=== PATIENT | female | born 1950 | race Caucasian/White ===

== ENCOUNTER → 2019-06-24 | Day surgery (SDC) | payer MEDICARE, OTHER ==
[2019-06-23 13:13] LABS: BASOPHILS % 0.4 % (0.0-1.0); EOSINOPHILS # (AUTO) 0.1 (0.0-0.4); EOSINOPHILS % 1.7 % (0.0-6.0); HEMATOCRIT 36.4 % (34.2-44.1); HEMOGLOBIN 12.6 g/dL (12.0-16.0); LYMPHOCYTES # (AUTO) 0.9 (1.0-3.2); LYMPHOCYTES % 11.5 % (18.0-39.1); MEAN CORPUSCULAR HEMOGLOBIN 37.4 pg (28-32); MEAN CORPUSCULAR HGB CONC 34.6 g/dL (31-35); MONOCYTES # (AUTO) 0.7 (0.2-0.8); MONOCYTES % 8.9 % (4.4-11.3); NEUTROPHILS # (AUTO) 5.8 (2.1-6.9); NEUTROPHILS % 77.1 % (38.7-80.0); PLATELET COUNT 156 x10e3/uL (140-360); RED BLOOD COUNT 3.37 x10e6/uL (3.6-5.1); RED CELL DISTRIBUTION WIDTH 12.7 % (11.7-14.4)
[2019-06-23 13:39] LABS: INR 0.96; PROTHROMBIN TIME 13.3 seconds (11.9-14.5)
[2019-06-23 13:40] LABS: PARTIAL THROMBOPLASTIN TIME 34.7 seconds (23.8-35.5)
[2019-06-23 13:50] LABS: ALANINE AMINOTRANSFERASE 25 IU/L (0-55); ALBUMIN 3.6 g/dL (3.5-5.0); ALBUMIN/GLOBULIN RATIO 0.9 (0.8-2.0); ALKALINE PHOSPHATASE 145 IU/L (40-150); ANION GAP 13.6 mmol/L (8-16); BLOOD UREA NITROGEN 10 mg/dL (7-26); BUN/CREATININE RATIO 13 (6-25); CALCIUM 8.9 mg/dL (8.4-10.2); CARBON DIOXIDE 26 mmol/L (22-29); CHLORIDE 102 mmol/L (98-107); CREATININE, SERUM 0.78 mg/dL (0.57-1.11); EST GLOMERULAR FILTRATION RATE > 60 ML/MIN (60-); GLUCOSE 116 mg/dL (74-118); POTASSIUM 4.6 mmol/L (3.5-5.1); SODIUM 137 mmol/L (136-145)
[~2019-06-24] MED LIST: ALIVE ONCE DAI1 EACH PO; AMLODIPINE BESYL5 MG PO; ASPIRIN EC81 MG PO; ATENOLOL50 MG PO; BREO ELLIPTA 11 EACH INH; COQ-10100 MG PO; ESOMEPRAZOLE MA40 MG PEG; FENTANYL CITRATE/PF 100MCG/2 ML INJ ONE; GABAPENTIN300 MG PO; GLYCOPYRROLATE INJ 0.2 MG/ML VIAL ONE; HYDROMORPHO2 MG/1 M7 PO; IRON PO; LIDOCAINE HCL 2% LOCAL INJ 5 ML SDV VIAL INJ ONE; MIDAZOLAM HCL 2 MG/2 ML VIAL ONE; POTASSIUM CITR10 MEQ PO; PROPOFOL IV EMULSION 10 MG/ML 50 ML VIAL ONE; VITAMIN C500 MG PO; VITAMIN D32000 UNI2 PO
--- OUTSIDE RECORDS SUMMARY | 2019-06-24 09:59 | XMS REPORT ---
Author Author [facility] Address Unknown Phone Unavailable Care Team Providers Care Rfid Developer Name Role Phone BRONWYN GARVIN Unavailable Unavailable PAOLA BUITRAGO Unavailable Unavailable Payers Payer Name Policy Type Policy Number Effective Date Expiration Date Problems This patient has no known problems. Allergies, Adverse Reactions, Alerts Allergy Name Allergy Type Status Severity Reaction(s) Onset Date Inactive Date Treating Clinician Comments No Known Allergies DA Active U 2015-05-17 00:00:00 Medications This patient has no known medications. Results Test Description Test Time Test Comments Text Results Atomic Results Result Comments CT ABDOMEN/PELVIS W 2019-05-22 14:14:00 [place] [address] Patient Name: JAYDEN MENDEZ MR #: [id number] : 1950 Age/Sex: 68/F Req #: [id number] Adm Physician: Ordered by: BRONWYN GARVIN MD Report #: [id number] Location: CT Room/Bed: Procedure: [id number] CT/CT ABDOMEN/PELVIS W Exam Date: Exam Time: REPORT STATUS: Signed CT of the abdomen and pelvis, with contrast, 05/22/2019. History: Anemia, cancer screening. Comparison: None available. Technique: Multidetector CT scanning of the abdomen and pelvis was performed from the level of the lung bases to the inferior pubic rami after intravenous and oral administration of contrast. Coronal and sagittal multiplanar reformations were obtained. RADIATION DOSE: Total DLP: 301 mGy*cm Dose modulation, iterative reconstruction, and/or weight based adjustment of the mA/kV was utilized to reduce the radiation dose to as low as reasonably achievable. Discussion: LUNG BASES: There is left basilar consolidation with adjacent pleural thickening. Bilateral breast implants are noted. ABDOMEN: There is nodularity of the liver surface contour with atrophy of the right hepatic lobe and hypertrophy of the left lobe. There is no focal hepatic lesion. Multiple subcentimeter cortical hypodensities are present within both kidneys which are too small to characterize. The gallbladder is absent. The biliary tree, spleen, pancreas, and adrenal glands are normal. The hepatic vein, portal vein, and splenic vein are patent. The portal vein is dilated measuring 15 mm in diameter. The abdominal aorta is mildly calcified but within normal limits for size. The stomach, small bowel, and large bowel are unremarkable. There is no evidence of dilatation, focal wall thickening, or obstructing mass. Appendectomy clips are noted. There is no evidence of adenopathy or free fluid. PELVIS: The bladder is unremarkable. The uterus and adnexa are absent. There is no evidence of free fluid or adenopathy. BONES AND SOFT TISSUES: Degenerative changes are present throughout the lumbar spine without evidence of lytic or sclerotic lesion. IMPRESSION: 1. Cirrhotic liver with findings of portal hypertension. 2. Bilateral subcentimeter renal hypodensities which are too small to characterize. 3. Status post cholecystectomy, hysterectomy, and appendectomy. 4. Left lung base consolidation may represent atelectasis but pneumonia cannot be excluded. Correlate clinically. 5. No bowel abnormality. This study cannot evaluate for small intraluminal polyps or masses. Signed by: Aaron Herrera on 05/22/2019 2:36 PM Dictated By: AARON HERRERA MD [id number] Transcribed By: FERNANDO on 05/22/19 1436 COPY TO: BRONWYN GARVIN MD - XR CHEST 2 V 2019-01-27 13:57:00 FAX: Moiz Hernandez MD [phone] [place]: St: REG Name: JAYDEN MENDEZ [facility] : 1950 Age/S: 68/F [address] Unit #: [id number] Loc: [place] [address] Phys: Moiz Guzman MD Acct: [id number] Dis Date: Status: REG CLI PHONE #: [phone] Exam Date: 01/27/2019 1335 FAX #: [phone] Reason: HTN EXAMS: CPT CODE: [id number] XR CHEST 2 V 77586 REASON FOR EXAM: HTN Exam Order Date: 01/27/2019 12:49 PM Ordering M.D.: Moiz Guzman MD PROCEDURE: - XR CHEST 2 V COMPARISON: 2 view chest x-ray January 03, 2017 FINDINGS: There is parenchymal scarring in the left midlung that is unchanged from the previous exam. There are linear opacities in the right midlung which are new from the previous study and may represent chronic subsegmental atelectasis versus parenchymal scarring. Bilateral breast implants are unchanged from the prior exam. Upper lungs are clear. No pleural effusion or pneumothorax. Cardiomediastinal silhouette is normal in size. No acute musculoskeletal abnormality. Visualized upper abdomen is radiographically unremarkable. IMPRESSION: Linear opacities in the right midlung are new from the prior exam and may represent subsegmental atelectasis versus parenchymal scarring. Scarring in the left lung is unchanged. Remainder of the lungs are clear. at 1357 Reported and signed by: Darwin Hays MD CC: Moiz Guzman MD Technologist: MICHELLE FREDERICK, RT(R); Amarilis Judge RT(R) Trnscrd Date/Time/By: 01/27/2019 (1357) : By: [email or web address] Orig Print D/T: S: (1400) PAGE 1 Signed Report CYTOLOGY 2017-06-07 15:48:00 Medical Cytology Report Case: [id number] Authorizing Provider: Yumiko Rehman MD Collected: 06/05/2017 1104 Ordering Location: [facility] Diagnostic Imaging Received: 06/05/2017 1400 Pathologist: Christina Watkins MD Specimen: Lung, Right Upper Lobe POSITIVE FOR MALIGNANCY RIGHT UPPER LOBE LUNG MASS, FNA WITH CELL BLOCK BY RADIOLOGIST (MO):ADENOCARCINOMA, CONSISTENT WITH LUNG ORIGIN (SEE COMMENT). Signing Pathologist Direct Phone Line: [phone] signed by Christina Watkins MD on 06/07/2017 at 3:48 PMImmunostains performed on cell block sections show that the tumor cells are positive for TTF-1 and Napsin A, while negative for p40, supporting the above diagnosis. PHOTO RETOUCHER REVIEW:Danita Foss above pathologist(s) have reviewed pertinent material and concur with the diagnosis.31728, 52596, 91203, 56924, 71714 x 2Lung mass; hx left lung cancerRUL lung mass (2.9 cm)Collected: 06/05/2017 1104Received: 06/05/2017 00653 passes; 2 smears; cell blockPASSES 1- 3: DIAGNOSTIC MATERIAL PRESENT. REQUEST ADDITIONAL FOR MOLECULAR STUDIES. (DG) 06/05/2017All cytologic preparations and histologic sections have been microscopically examined. The pertinent microscopic examination findings have been incorporated into the diagnosis rendered above.SatisfactoryThe following special studies were performed on this case and the interpretation is incorporated in the diagnostic report above: TTF-1, Napsin A, and p40.Control material (internal or externally reviewed) examined and shown to be satisfactory for patient interpretation.The immunohistochemistry test was developed and its performance characteristics determined by [facility] Pathology [facility]. It has not been cleared or approved by the U.S. Food and Drug Administration. The FDA has determined that such clearance or approval is not necessary. The test is used for clinical purposes. It should not be regarded as investigational or for research. This laboratory is certified under the Clinical Laboratory Improvement Amendments of 1988 (CLIA-88) as qualified to perform high complexity clinical laboratory testing.[facility], Department of Pathology, [address] [place] [address], Bd. [facility] Department of Pathology, [address] [place] [address], Fb. [facility], Department of Pathology, [address] [place] [address], CT, BIOPSY, LUNG 2017-06-05 18:08:00 Reason for Exam:->ADENOCARCINOMA OF UPPER LOBE OF LEFT LUNG, C34.12 FINAL REPORT Exam: CT-guided lung biopsy Clinical History: Lung mass Consent: Benefits and risks were explained to the patient who gave consent to the procedure. Sedation: The procedure was performed with conscious sedation. Continuous cardiorespiratory monitoring was performed by a registered nurse throughout the procedure. The total sedation time is 30 minutes. Fluoro Time: 0.1 Minutes Medication: Versed 1 mg IV, fentanyl 50 mcg IV Procedure: The right posterior chest was prepped and draped in usual sterile fashion. 1% lidocaine was used as local anesthetic. Under CT guidance, a 19-gauge guiding needle was advanced to the posterior border of a 2.7 cm mass in the right lower lobe. In coaxial fashion, 23-gauge needle was used to perform FNA. 5 passes were made. The specimens were given to pathology on site and determined to be adequate. Hemostasis was achieved. The patient tolerated the procedure well without any adverse reactions. She left the department in stable condition. Complication: None immediate Impression: 1. CT-guided lung biopsy as described. DOSE REDUCTION: The exams was performed according to the departmental dose-optimization program which includes automated exposure control, adjustment of the mA and/or kV according to patient size and/or use of iterative reconstruction technique. Signed: Yumiko Rehman MDReport Verified Date/Time: 06/05/2017 18:08:19 Reading Location: [facility] Radiology Reading Room , CHEST, 1 VIEW, NON DEPT 2017-06-05 14:01:00 Reason for exam:->s/p right lung biopsy. Pt in Radiology room #3.Should this be performed at the bedside?->Yes FINAL REPORT Chest, 1 view, 06/05/2017 12:18 PM. History: Post right lung biopsy. Comparison: 07/24/2016. Discussion: The cardiomediastinal silhouette and pulmonary vasculature are within normal limits for a portable exam. Right perihilar mass is present. There is no evidence of a pneumothorax. Linear opacities are again seen in the mid left lung. Bilateral breast implants are noted. The soft tissues and osseous structures are intact. IMPRESSION: No evidence of complication post right lung biopsy. Signed: Aaron Herrera MDReport Verified Date/Time: 06/05/2017 14:01:38 Reading Location: [facility] Diagnostic Imaging Reading Room - [facility] 1.310.12 HROMBIN TIME/INR 2017-06-05 08:57:00 PROTIME (BEAKER) (test rbzm=885) 13.6 seconds 11.8-14.4 INR (BEAKER) (test gyil=338) 1.0 1.2-1.5 RECOMMENDED COUMADIN/WARFARIN INR THERAPY RANGESSTANDARD DOSE: 2.0 - 3.0 Inclu jen: PROPHYLAXIS for venous thrombosis, systemic embolization; TREATMENT for tan ous thrombosis and/or pulmonary embolus.HIGH RISK: Target INR is 2.5-3.5 for pat ients with mechanical heart valves.[id number] 08:57:00* Test Item Value Reference Range Comments PARTIAL THROMBOPLASTIN TIME (BEAKER) (test mbdr=298) 35.2 seconds 23.2-36.1 PLATELET [id number] 08:47:00* Test Item Value Reference Range Comments PLATELET COUNT (BEAKER) (test romc=490) 255 K/CU MM 150-430 TROPONIN [id number] 20:47:00* Test Item Value Reference Range Comments TROPONIN I (BEAKER) (test opdd=134) < ng/mL 0.00-0.15 Troponin I (TnI) levels must be interpreted in the context of the presenting sym ptoms and the clinical findings. Elevated TnI levels indicate myocardial damage, but are not specific for ischemic heart disease. Elevated TnI levels are seen in patients with other cardiac conditions (including myocarditis and congestive h eart failure), and slight TnI elevations occur in patients with other conditions , including sepsis, renal failure, acidosis, acute neurological disease, and per sistent tachyarrhythmia.B-TYPE NATRIURETIC FACTOR (BNP)2016-07-24 20:46:00* Test Item Value Reference Range Comments B-TYPE NATRIURETIC PEPTIDE (BEAKER) (test nclc=008) 37 pg/mL 0-100 COMPREHENSIVE METABOLIC [id number] 20:40:00* Test Item Value Reference Range Comments TOTAL PROTEIN (BEAKER) (test swgl=760) 7.9 gm/dL 6.0-8.5 ALBUMIN (BEAKER) (test iycj=0324) 3.9 g/dL 3.5-5.0 ALKALINE PHOSPHATASE (BEAKER) (test jmxj=064) 193 U/L 30-115 BILIRUBIN TOTAL (BEAKER) (test ygwe=299) 0.7 mg/dL 0.1-1.3 SODIUM (BEAKER) (test ruiz=692) 132 meq/L 135-148 POTASSIUM (BEAKER) (test bdyr=960) 4.4 meq/L 3.5-5.5 CHLORIDE (BEAKER) (test swiz=967) 97 meq/L 98-106 CO2 (BEAKER) (test hcfc=319) 24 meq/L 20-31 BLOOD UREA NITROGEN (BEAKER) (test kyna=855) 10 mg/dL 10-26 CREATININE (BEAKER) (test lxif=954) 1.25 mg/dL 0.50-1.20 GLUCOSE RANDOM (BEAKER) (test gvio=717) 114 mg/dL 70-110 CALCIUM (BEAKER) (test kkiu=728) 9.1 mg/dL 8.5-10.5 AST (SGOT) (BEAKER) (test vnis=784) 35 U/L 5-40 ALT (SGPT) (BEAKER) (test rgui=052) 14 U/L 6-50 EGFR (BEAKER) (test aioh=3465) 43 mL/min/1.73 sq m ESTIMATED GFR IS NOT ACCURATE CREATININE CLEARANCE IN PREDICTING GLOMERULAR FILTRATION RATE. ESTIMATED GFR IS NOT APPLICABLE FOR DIALYSIS PATIENTS. CBC W/PLT COUNT & AUTO [id number] 20:10:00* Test Item Value Reference Range Comments WHITE BLOOD CELL COUNT (BEAKER) (test ecsm=026) 7.7 K/ L 4.0-10.0 RED BLOOD CELL COUNT (BEAKER) (test ahvq=070) 3.55 M/ L 4.00-5.00 HEMOGLOBIN (BEAKER) (test yozg=583) 11.7 GM/DL 12.0-15.0 HEMATOCRIT (BEAKER) (test dhsu=874) 35.0 % 36.0-45.0 MEAN CORPUSCULAR VOLUME (BEAKER) (test uods=498) 98.7 fL 82.0-99.0 MEAN CORPUSCULAR HEMOGLOBIN (BEAKER) (test ibwy=995) 33.1 pg 27.0-33.0 MEAN CORPUSCULAR HEMOGLOBIN CONC (BEAKER) (test tnna=295) 33.5 GM/DL 32.0-36.0 RED CELL DISTRIBUTION WIDTH (BEAKER) (test rwbh=493) 16.8 % 12.0-15.0 PLATELET COUNT (BEAKER) (test xdzn=790) 225 K/CU MM 150-430 MEAN PLATELET VOLUME (BEAKER) (test evjl=120) 8.4 fL 6.5-10.5 NUCLEATED RED BLOOD CELLS (BEAKER) (test chwb=534) 0 /100 WBC 0-0 NEUTROPHILS RELATIVE PERCENT (BEAKER) (test wjip=120) 60 % LYMPHOCYTES RELATIVE PERCENT (BEAKER) (test defw=953) 26 % MONOCYTES RELATIVE PERCENT (BEAKER) (test xoog=267) 12 % EOSINOPHILS RELATIVE PERCENT (BEAKER) (test nafq=084) 2 % BASOPHILS RELATIVE PERCENT (BEAKER) (test kcgp=056) 0 % NEUTROPHILS ABSOLUTE COUNT (BEAKER) (test scez=213) 4.60 K/ L 1.80-8.00 LYMPHOCYTES ABSOLUTE COUNT (BEAKER) (test nkxt=720) 2.00 K/ L 1.48-4.50 MONOCYTES ABSOLUTE COUNT (BEAKER) (test eilj=379) 0.90 K/ L 0.00-1.30 EOSINOPHILS ABSOLUTE COUNT (BEAKER) (test anlt=192) 0.20 K/ L 0.00-0.50 BASOPHILS ABSOLUTE COUNT (BEAKER) (test nakp=796) 0.00 K/ L 0.00-0.20
[2019-06-24 11:44] VITALS: BP 129/71
== END | disposition home or self-care (01) ==
LOC: OR 08:47
PROVIDERS: ATTEND Internal Medicine Gastroenterology
DX: Z12.11 Encounter for screening for malignant neoplasm of colon (principal); D12.2 Benign neoplasm of ascending colon; D12.3 Benign neoplasm of transverse colon; K29.70 Gastritis, unspecified, without bleeding; K29.80 Duodenitis without bleeding; K21.9 Gastro-esophageal reflux disease without esophagitis; K64.8 Other hemorrhoids; K44.9 Diaphragmatic hernia without obstruction or gangrene; R19.5 Other fecal abnormalities; K74.60 Unspecified cirrhosis of liver; D64.9 Anemia, unspecified; I10 Essential (primary) hypertension; Z79.82 Long term (current) use of aspirin; Z85.118 Personal history of other malignant neoplasm of bronchus and lung; Z92.3 Personal history of irradiation; Z92.21 Personal history of antineoplastic chemotherapy
CPT/HCPCS: 36415; 43239; 45385; 80053; 85025; 85610; 85730; 88305; 88312; 93005; J2001; J2250; J2704; J3010; 45378; 45384

== ENCOUNTER 2021-05-26 05:14 | Inpatient (IN) | payer MEDICARE, OTHER ==
[~2021-05-26] VITALS: Ht 162.6 cm; Wt 59.0 kg
[2021-05-26] MEDS: SODIUM CHLORIDE 0.9% 1000ML 1,000 ML IV SCH ×2 (02:00→10:03)
[~2021-05-26 05:14] MED LIST changes: -FENTANYL CITRATE/PF 100MCG/2 ML INJ ONE; -GLYCOPYRROLATE INJ 0.2 MG/ML VIAL ONE; -LIDOCAINE HCL 2% LOCAL INJ 5 ML SDV VIAL INJ ONE; -MIDAZOLAM HCL 2 MG/2 ML VIAL ONE; -PROPOFOL IV EMULSION 10 MG/ML 50 ML VIAL ONE
[2021-05-26] MEDS ORDERED: METHYLPREDNISOLONE SOD SUCC 125 MG/2ML VIAL IV ONE (05:30)
[2021-05-26] MEDS ORDERED: ALBUTEROL/IPRATROPIUM 3 ML NEB NEB ONE (05:30)
[2021-05-26] MEDS ORDERED: ACETAMINOPHEN 325 MG TAB PO ONE (05:45)
[2021-05-26 05:53] LABS: BASOPHILS % 0.2 % (0.0-1.0); EOSINOPHILS # (AUTO) 0.1 (0.0-0.4); EOSINOPHILS % 0.9 % (0.0-6.0); HEMATOCRIT 34.7 % (34.2-44.1); HEMOGLOBIN 10.9 g/dL (12.0-16.0); LYMPHOCYTES # (AUTO) 1.7 (1.0-3.2); LYMPHOCYTES % 14.1 % (18.0-39.1); MEAN CORPUSCULAR HEMOGLOBIN 35.3 pg (28-32); MEAN CORPUSCULAR HGB CONC 31.4 g/dL (31-35); MEAN CORPUSCULAR VOLUME 112.3 fL (81-99); MONOCYTES # (AUTO) 1.1 (0.2-0.8); MONOCYTES % 9.2 % (4.4-11.3); NEUTROPHILS # (AUTO) 9.2 (2.1-6.9); NEUTROPHILS % 74.9 % (38.7-80.0); PLATELET COUNT 154 x10e3/uL (140-360); RED BLOOD COUNT 3.09 x10e6/uL (3.6-5.1); RED CELL DISTRIBUTION WIDTH 14.7 % (11.7-14.4)
[2021-05-26] MEDS ORDERED: ACETAMINOPHEN 325 MG TAB ONE (05:56)
[2021-05-26 05:57] LABS: ABG PCO2 41 mmHg (35-45); ABG PH 7.38 (7.35-7.45)
[2021-05-26 05:58] LABS: ABG HCO3 24 mmol/L (22-26); ABG PO2 211 mmHg (80-105); ABG TCO2 25
[2021-05-26 06:04] LABS: ALBUMIN/GLOBULIN RATIO 0.7 (0.8-2.0); CREATININE, SERUM 1.05 mg/dL (0.57-1.11)
[2021-05-26] MEDS ORDERED: IOPAMIDOL 370 MG/ML 200 ML INFUS..BTL INJ ONE (06:30)
[2021-05-26] MEDS ORDERED: LACTATED RINGER'S 1,000 ML INJ ONE (06:30)
[2021-05-26] MEDS ORDERED: CEFEPIME 1 GM in SODIUM CHLORIDE 0.9% 50ML 50 ML IV ONE (06:30)
[2021-05-26] MEDS ORDERED: SODIUM CHLORIDE 0.9% 50ML 0 ML ONE (06:30)
[2021-05-26] MEDS ORDERED: ONDANSETRON HCL INJ 2MG/ML 2ML 2 MG/ML VIAL IV PRN (07:15)
[2021-05-26] MEDS ORDERED: DOCUSATE SODIUM 100 MG CAP PO PRN (07:30)
[2021-05-26] MEDS ORDERED: GUAIFENESIN/DEXTROMETHORPHAN LIQD 5 ML UDC NG PRN (07:30)
[2021-05-26] MEDS ORDERED: BENZONATATE 100 MG CAP PO PRN (07:30)
[2021-05-26] MEDS: PANTOPRAZOLE SODIUM 40 MG SUSPDR.PKT PEG SCH (08:30)
[2021-05-26 08:34] VITALS: BP 155/86
[2021-05-26 08:36] LABS: BAND NEUTROPHILS % (MANUAL) 1 %; EOSINOPHILS % (MANUAL) 3 % (0-7); LYMPHOCYTES % (MANUAL) 21 % (19-48); MONOCYTES % (MANUAL) 3 % (3.4-9.0); NEUTROPHILS % (MANUAL) 69 % (40-74); PLATELET ESTIMATE ADEQUATE; PLATELET MORPHOLOGY COMMENT NORMAL; RBC MORPHOLOGY COMMENT NORMAL
[2021-05-26 09:00] VITALS: BP 155/86
[2021-05-26] MEDS: ASPIRIN 81 MG ENTERIC COATED PO SCH (10:03)
[2021-05-26] MEDS: ATENOLOL 50 MG TAB PO SCH (10:03)
[2021-05-26] MEDS: GABAPENTIN 300 MG CAP PO SCH ×4 (10:03→21:30)
[2021-05-26] MEDS: ASCORBIC ACID 500 MG TAB PO SCH (10:04)
[2021-05-26] MEDS: CHOLECALCIFEROL 1,000 UNIT TAB PO SCH (10:04)
[2021-05-26 11:11] VITALS: BP 105/73
[2021-05-26 16:08] VITALS: BP 108/70
[2021-05-26] MEDS: ENOXAPARIN SOD INJ 40 MG/0.4 ML SYR SC SCH (17:27)
[2021-05-26 19:10] VITALS: BP 129/81
[2021-05-26] MEDS ORDERED: MONTELUKAST SODIUM 10 MG TAB PO SCH (21:00)
[2021-05-26] MEDS: METHYLPREDNISOLONE SOD SUCC 40 MG/ML VIAL 1ML IV SCH (21:33)
[2021-05-26 22:15] VITALS: BP 129/81
[2021-05-27] VITALS (7 sets, daily range): BP systolic 122–150; BP diastolic 66–78
[2021-05-27 06:18] LABS: HEMATOCRIT 30.4 % (34.2-44.1); HEMOGLOBIN 9.6 g/dL (12.0-16.0); LYMPHOCYTES # (AUTO) 0.6 (1.0-3.2); LYMPHOCYTES % 8.6 % (18.0-39.1); MEAN CORPUSCULAR HGB CONC 31.6 g/dL (31-35); MEAN CORPUSCULAR VOLUME 110.9 fL (81-99); MONOCYTES # (AUTO) 0.4 (0.2-0.8); MONOCYTES % 5.5 % (4.4-11.3); NEUTROPHILS # (AUTO) 5.8 (2.1-6.9); NEUTROPHILS % 85.5 % (38.7-80.0); PLATELET COUNT 112 x10e3/uL (140-360); RED BLOOD COUNT 2.74 x10e6/uL (3.6-5.1); RED CELL DISTRIBUTION WIDTH 14.6 % (11.7-14.4)
[2021-05-27 06:43] LABS: ANION GAP 15.3 mmol/L (8-16); CALCIUM 8.9 mg/dL (8.4-10.2); CREATININE, SERUM 0.89 mg/dL (0.57-1.11); POTASSIUM 4.3 mmol/L (3.5-5.1)
[2021-05-27] MEDS: SODIUM CHLORIDE 0.9% 1000ML 1,000 ML IV SCH ×2 (06:52→12:41)
[2021-05-27] MEDS: CHOLECALCIFEROL 1,000 UNIT TAB PO SCH (09:00)
[2021-05-27] MEDS: ATENOLOL 50 MG TAB PO SCH (09:00)
[2021-05-27] MEDS ORDERED: CEFEPIME 1 GM in SODIUM CHLORIDE 0.9% 50ML 50 ML IV SCH (09:00)
[2021-05-27] MEDS: PANTOPRAZOLE SODIUM 40 MG SUSPDR.PKT PEG SCH (09:00)
[2021-05-27] MEDS: ASCORBIC ACID 500 MG TAB PO SCH (09:00)
[2021-05-27] MEDS: METHYLPREDNISOLONE SOD SUCC 40 MG/ML VIAL 1ML IV SCH (09:00)
[2021-05-27] MEDS: ASPIRIN 81 MG ENTERIC COATED PO SCH (09:00)
[2021-05-27] MEDS: GABAPENTIN 300 MG CAP PO SCH ×3 (09:00→16:26)
[2021-05-27] MEDS: ACETAMINOPHEN 325 MG TAB PO PRN ×2 (09:00→15:33)
[2021-05-27] MEDS ORDERED: ALPRAZOLAM 0.25 MG TAB PO PRN (09:30)
[2021-05-27] MEDS ORDERED: Benzonatate PO (09:32)
[2021-05-27] MEDS ORDERED: SINGULAIR10 MG PO (09:32)
[2021-05-27] MEDS ORDERED: PREDNISONE20 MG PO (09:32)
[2021-05-27] MEDS ORDERED: CEFUROXIME250 MG PO (09:32)
[2021-05-27] MEDS ORDERED: Guaifenesin/Dextromethorphan NG (09:32)
[2021-05-27] MEDS ORDERED: ONDANSETRON HCL 4 MG ORAL DISINTEGRATING TAB PO PRN (10:15)
[2021-05-27] MEDS ORDERED: HYDROMORPHONE 1MG/1ML INJ IV ONE (10:15)
[2021-05-27 11:36] LABS: PLATELET ESTIMATE SLIGHTLY DECREASED; PLATELET MORPHOLOGY COMMENT NORMAL; RBC MORPHOLOGY COMMENT ABNORMAL
[2021-05-27] MEDS: ENOXAPARIN SOD INJ 40 MG/0.4 ML SYR SC SCH (15:32)
== END 2021-05-27 17:56 | disposition home or self-care (01) | DRG 872 ==
LOC: ER 05:23 → ERHOLD 07:14 → OBSVTOIN 07:27 → MED/SURG3 08:22
PROVIDERS: ADMIT Internal Medicine; ATTEND Internal Medicine
DX: A41.9 Sepsis, unspecified organism (principal); J44.1 Chronic obstructive pulmonary disease with (acute) exacerbation; N17.9 Acute kidney failure, unspecified; C34.92 Malignant neoplasm of unspecified part of left bronchus or lung; C34.91 Malignant neoplasm of unspecified part of right bronchus or lung; J96.11 Chronic respiratory failure with hypoxia; I10 Essential (primary) hypertension; K21.9 Gastro-esophageal reflux disease without esophagitis; F41.9 Anxiety disorder, unspecified; G89.3 Neoplasm related pain (acute) (chronic); Z90.49 Acquired absence of other specified parts of digestive tract; Z87.891 Personal history of nicotine dependence; Z99.81 Dependence on supplemental oxygen; Z20.822 Contact with and (suspected) exposure to COVID-19
CPT/HCPCS: 36415; 36600; 71045; 71260; 80048; 80053; 82805; 83605; 84484; 85025; 87040; 93005; 94640; 94799; 97139; 99284; J0456; J0692; J1170; J1650; J2920; J2930; J7030; J7050; J7121; Q9967; U0002

== ENCOUNTER 2021-06-10 12:35 | Emergency (ER) | payer MEDICARE, OTHER ==
[~2021-06-10] VITALS: Ht 162.6 cm; Wt 59.0 kg
[~2021-06-10 12:35] MED LIST changes: +Benzonatate PO; +CEFUROXIME250 MG PO; +Guaifenesin/Dextromethorphan NG; +PREDNISONE20 MG PO; +SINGULAIR10 MG PO
[2021-06-10] MEDS ORDERED: METHYLPREDNISOLONE SOD SUCC 125 MG/2ML VIAL IV STA (13:05)
[2021-06-10 13:26] LABS: BASOPHILS % 0.2 % (0.0-1.0); EOSINOPHILS # (AUTO) 0.1 (0.0-0.4); EOSINOPHILS % 0.9 % (0.0-6.0); HEMATOCRIT 33.8 % (34.2-44.1); HEMOGLOBIN 10.5 g/dL (12.0-16.0); LYMPHOCYTES # (AUTO) 0.7 (1.0-3.2); LYMPHOCYTES % 6.3 % (18.0-39.1); MEAN CORPUSCULAR HGB CONC 31.1 g/dL (31-35); MEAN CORPUSCULAR VOLUME 112.7 fL (81-99); MONOCYTES % 9.1 % (4.4-11.3); NEUTROPHILS # (AUTO) 9.2 (2.1-6.9); NEUTROPHILS % 83.1 % (38.7-80.0); PLATELET COUNT 211 x10e3/uL (140-360); RED CELL DISTRIBUTION WIDTH 14.6 % (11.7-14.4)
[2021-06-10 13:32] LABS: INR 0.99; PROTHROMBIN TIME 13.8 seconds (11.9-14.5)
[2021-06-10 13:33] LABS: PARTIAL THROMBOPLASTIN TIME 33.1 seconds (23.8-35.5)
[2021-06-10 13:41] LABS: ALBUMIN 3.1 g/dL (3.5-5.0); ALBUMIN/GLOBULIN RATIO 0.8 (0.8-2.0); ANION GAP 14.4 mmol/L (8-16); CALCIUM 8.9 mg/dL (8.4-10.2); CREATININE, SERUM 0.93 mg/dL (0.57-1.11); POTASSIUM 4.4 mmol/L (3.5-5.1)
[2021-06-10 13:47] LABS: CREATINE KINASE MB 1.9 ng/mL (0-5.0)
[2021-06-10] MEDS ORDERED: ALBUTEROL/IPRATROPIUM 3 ML NEB NEB ONE (14:00)
== END 2021-06-10 16:19 | disposition home or self-care (01) ==
LOC: ER 13:05
DX: R04.2 Hemoptysis (principal); C34.92 Malignant neoplasm of unspecified part of left bronchus or lung; C34.91 Malignant neoplasm of unspecified part of right bronchus or lung; J40 Bronchitis, not specified as acute or chronic; I10 Essential (primary) hypertension; Z20.822 Contact with and (suspected) exposure to COVID-19
CPT/HCPCS: 36415; 71045; 80053; 82550; 82553; 83880; 84484; 85025; 85610; 85730; 93005; 94640; 94799; 99284; J2930; U0002

== ENCOUNTER 2021-09-05 06:18 | Inpatient (IN) | payer MEDICARE, OTHER ==
[~2021-09-05] VITALS: Ht 162.6 cm; Wt 59.0 kg
[2021-09-05 06:44] LABS: BASOPHILS % 0.5 % (0.0-1.0); EOSINOPHILS # (AUTO) 0.1 (0.0-0.4); EOSINOPHILS % 2.1 % (0.0-6.0); HEMATOCRIT 28.4 % (34.2-44.1); HEMOGLOBIN 8.7 g/dL (12.0-16.0); LYMPHOCYTES % 16.7 % (18.0-39.1); MEAN CORPUSCULAR HEMOGLOBIN 30.5 pg (28-32); MEAN CORPUSCULAR HGB CONC 30.6 g/dL (31-35); MEAN CORPUSCULAR VOLUME 99.6 fL (81-99); MONOCYTES # (AUTO) 0.7 (0.2-0.8); MONOCYTES % 11.2 % (4.4-11.3); NEUTROPHILS # (AUTO) 4.2 (2.1-6.9); NEUTROPHILS % 69.2 % (38.7-80.0); PLATELET COUNT 260 x10e3/uL (140-360); RED BLOOD COUNT 2.85 x10e6/uL (3.6-5.1); RED CELL DISTRIBUTION WIDTH 14.5 % (11.7-14.4)
[2021-09-05] MEDS ORDERED: ALBUTEROL/IPRATROPIUM 3 ML NEB NEB ONE (06:45)
[2021-09-05] MEDS ORDERED: DEXAMETHASONE SOD PHOS 10 MG/1 ML VIAL IV ONE (06:45)
[2021-09-05 07:05] LABS: ALBUMIN/GLOBULIN RATIO 0.7 (0.8-2.0); ANION GAP 17.4 mmol/L (8-16); CALCIUM 8.5 mg/dL (8.4-10.2); CREATININE, SERUM 0.84 mg/dL (0.57-1.11); POTASSIUM 3.4 mmol/L (3.5-5.1)
[2021-09-05] MEDS ORDERED: IOPAMIDOL 370 MG/ML 100 ML INFUS..BTL INJ ONE (07:42)
[2021-09-05] MEDS ORDERED: ZOLPIDEM TARTRATE 5 MG TAB PO PRN (10:15)
[2021-09-05] MEDS ORDERED: ONDANSETRON HCL INJ 2MG/ML 2ML 2 MG/ML VIAL IV PRN (10:15)
[2021-09-05] MEDS: ATENOLOL 50 MG TAB PO SCH (10:45)
[2021-09-05] MEDS: AMLODIPINE BESYLATE 5 MG TAB PO SCH (10:45)
[2021-09-05 11:58] VITALS: BP 138/68
[2021-09-05 12:27] VITALS: BP 138/68
[2021-09-05 13:31] LABS: INR 0.97; PROTHROMBIN TIME 13.8 seconds (11.9-14.5)
[2021-09-05 14:03] VITALS: BP 138/68
[2021-09-05 15:48] LABS: BODY FLUID TYPE PLEURAL
[2021-09-05 15:49] LABS: BODY FLUID APPEARANCE CLOUDY; BODY FLUID COLOR YELLOW
[2021-09-05 17:31] VITALS: BP 115/65
[2021-09-05 18:06] LABS: LYMPHOCYTES,BODY FLUID 32 %; MONO/MACROPHG,BODY FLUID 19 %; NEUTROPHILS,BODY FLUID 36 %; OTHER CELLS,BODY FLUID 13 %
[2021-09-05 18:19] LABS: RBC,BODY FLUID 204 cells/uL; WBC,BODY FLUID 90 cells/uL
[2021-09-05] MEDS: BENZONATATE 100 MG CAP PO SCH (18:29)
[2021-09-05] MEDS ORDERED: ACETAMINOPHEN 325 MG TAB PO PRN (18:30)
[2021-09-05] MEDS: ALBUTEROL/IPRATROPIUM 3 ML NEB NEB PRN (18:43)
[2021-09-05 20:00] VITALS: BP 136/71
[2021-09-05] MEDS: TRAMADOL HCL 50 MG TAB PO PRN (23:04)
[2021-09-06] VITALS (8 sets, daily range): BP systolic 107–138; BP diastolic 52–80
[2021-09-06 06:11] LABS: BASOPHILS % 0.1 % (0.0-1.0); HEMATOCRIT 26.9 % (34.2-44.1); HEMOGLOBIN 8.4 g/dL (12.0-16.0); LYMPHOCYTES # (AUTO) 0.7 (1.0-3.2); LYMPHOCYTES % 9.4 % (18.0-39.1); MEAN CORPUSCULAR HGB CONC 31.2 g/dL (31-35); MEAN CORPUSCULAR VOLUME 99.3 fL (81-99); MONOCYTES # (AUTO) 0.9 (0.2-0.8); MONOCYTES % 13.6 % (4.4-11.3); NEUTROPHILS # (AUTO) 5.3 (2.1-6.9); NEUTROPHILS % 76.6 % (38.7-80.0); PLATELET COUNT 262 x10e3/uL (140-360); RED BLOOD COUNT 2.71 x10e6/uL (3.6-5.1); RED CELL DISTRIBUTION WIDTH 14.7 % (11.7-14.4)
[2021-09-06 06:29] LABS: ANION GAP 12.3 mmol/L (8-16); CALCIUM 8.8 mg/dL (8.4-10.2); CREATININE, SERUM 0.98 mg/dL (0.57-1.11); POTASSIUM 4.3 mmol/L (3.5-5.1)
[2021-09-06] MEDS: ACETAMINOPHEN 325 MG TAB PO SCH ×3 (06:33→22:00)
[2021-09-06] MEDS: BENZONATATE 100 MG CAP PO SCH ×2 (09:26→17:32)
[2021-09-06] MEDS: AMLODIPINE BESYLATE 5 MG TAB PO SCH (09:26)
[2021-09-06] MEDS: ATENOLOL 50 MG TAB PO SCH (09:27)
[2021-09-06] MEDS: ALBUTEROL/IPRATROPIUM 3 ML NEB NEB PRN (10:45)
[2021-09-06] MEDS: TRAMADOL HCL 50 MG TAB PO PRN ×2 (10:58→16:20)
[2021-09-06] MEDS: METHYLPREDNISOLONE SOD SUCC 125 MG/2ML VIAL IV SCH (12:44)
[2021-09-06] MEDS: ALBUTEROL/IPRATROPIUM 3 ML NEB NEB SCH ×2 (14:45→19:40)
[2021-09-07] VITALS (8 sets, daily range): BP systolic 113–155; BP diastolic 67–98
[2021-09-07] MEDS: ALBUTEROL/IPRATROPIUM 3 ML NEB NEB SCH ×4 (01:35→19:08)
[2021-09-07] MEDS: ACETAMINOPHEN 325 MG TAB PO SCH ×3 (06:00→21:29)
[2021-09-07] MEDS: BENZONATATE 100 MG CAP PO SCH ×2 (07:31→17:29)
[2021-09-07] MEDS: METHYLPREDNISOLONE SOD SUCC 125 MG/2ML VIAL IV SCH (09:04)
[2021-09-07] MEDS: AMLODIPINE BESYLATE 5 MG TAB PO SCH (09:04)
[2021-09-07] MEDS: ATENOLOL 50 MG TAB PO SCH (09:04)
[2021-09-07] MEDS: TRAMADOL HCL 50 MG TAB PO PRN ×2 (09:11→15:11)
[2021-09-07 10:04] LABS: HEMATOCRIT 28.2 % (34.2-44.1); HEMOGLOBIN 8.8 g/dL (12.0-16.0); LYMPHOCYTES # (AUTO) 0.7 (1.0-3.2); LYMPHOCYTES % 8.7 % (18.0-39.1); MEAN CORPUSCULAR HEMOGLOBIN 31.3 pg (28-32); MEAN CORPUSCULAR HGB CONC 31.2 g/dL (31-35); MEAN CORPUSCULAR VOLUME 100.4 fL (81-99); MONOCYTES % 13.6 % (4.4-11.3); NEUTROPHILS # (AUTO) 5.9 (2.1-6.9); NEUTROPHILS % 77.4 % (38.7-80.0); PLATELET COUNT 288 x10e3/uL (140-360); RED BLOOD COUNT 2.81 x10e6/uL (3.6-5.1); RED CELL DISTRIBUTION WIDTH 14.6 % (11.7-14.4)
[2021-09-07 10:26] LABS: ANION GAP 12.6 mmol/L (8-16); CREATININE, SERUM 1.1 mg/dL (0.57-1.11); POTASSIUM 3.6 mmol/L (3.5-5.1)
[2021-09-08] VITALS: BP 146/89
[2021-09-08] MEDS: ALBUTEROL/IPRATROPIUM 3 ML NEB NEB SCH ×3 (00:12→13:00)
[2021-09-08 04:00] VITALS: BP 153/111
[2021-09-08] MEDS: ACETAMINOPHEN 325 MG TAB PO SCH ×2 (06:00→14:00)
[2021-09-08 07:40] VITALS: BP 167/96
[2021-09-08 08:02] LABS: ANION GAP 15.4 mmol/L (8-16); CALCIUM 8.8 mg/dL (8.4-10.2); CREATININE, SERUM 0.82 mg/dL (0.57-1.11); POTASSIUM 3.4 mmol/L (3.5-5.1)
[2021-09-08 08:05] VITALS: BP 167/96
[2021-09-08] MEDS: METHYLPREDNISOLONE SOD SUCC 125 MG/2ML VIAL IV SCH (09:09)
[2021-09-08] MEDS: ATENOLOL 50 MG TAB PO SCH (09:12)
[2021-09-08] MEDS: BENZONATATE 100 MG CAP PO SCH ×2 (09:12→16:24)
[2021-09-08] MEDS: AMLODIPINE BESYLATE 5 MG TAB PO SCH (09:12)
[2021-09-08] MEDS ORDERED: POTASSIUM CHLORIDE 20 MEQ TAB CR PO ONE (11:15)
[2021-09-08 11:59] VITALS: BP 158/79
[2021-09-08] MEDS ORDERED: ONDANSETRON HCL 4 MG ORAL DISINTEGRATING TAB PO PRN (13:45)
[2021-09-08] MEDS ORDERED: PREDNISONE20 MG PO (15:26)
[2021-09-08 15:54] VITALS: BP 138/69
[2021-09-08] MEDS: TRAMADOL HCL 50 MG TAB PO PRN (16:24)
== END 2021-09-08 17:21 | disposition home health service (06) | DRG 190 ==
LOC: ER 07:14 → ERHOLD 09:07 → MED/SURG3 10:52 → OBSVTOIN 09-06 08:57
PROVIDERS: ADMIT Internal Medicine; ATTEND Internal Medicine
PROC: 0W993ZZ Drainage of Right Pleural Cavity, Percutaneous Approach (ICD-10-PCS; principal; 2021-09-05)
DX: J44.1 Chronic obstructive pulmonary disease with (acute) exacerbation (principal); J96.20 Acute and chronic respiratory failure, unspecified whether with hypoxia or hypercapnia; J90 Pleural effusion, not elsewhere classified; Z99.81 Dependence on supplemental oxygen; I10 Essential (primary) hypertension; D50.0 Iron deficiency anemia secondary to blood loss (chronic); E87.6 Hypokalemia; K21.9 Gastro-esophageal reflux disease without esophagitis; Z85.118 Personal history of other malignant neoplasm of bronchus and lung; Z90.49 Acquired absence of other specified parts of digestive tract; Z90.13 Acquired absence of bilateral breasts and nipples; Z87.891 Personal history of nicotine dependence; Z85.9 Personal history of malignant neoplasm, unspecified; Z20.822 Contact with and (suspected) exposure to COVID-19
CPT/HCPCS: 32555; 36415; 71045; 71260; 74470; 80048; 80053; 82948; 83615; 83880; 84157; 84443; 84484; 85025; 85610; 87070; 87205; 88112; 88305; 89051; 93005; 93306; 94640; 94760; 94799; 99285; G0378; J1100; J2930; Q9967; U0002